=== PATIENT | male | born 1995 | race African-American/Black ===

== ENCOUNTER 2019-05-10 10:55 | Emergency (ER) | payer OTHER ==
--- NOTE | 2019-05-10 13:17 | ER Document Report ---
ED General - General Chief Complaint: Rectal Pain Stated Complaint: RECTAL PAIN Time Seen by Provider: 05/10/19 12:55 Mode of Arrival: Ambulatory Information source: Patient Notes: Patient is a 23-year-old male presenting to the emergency department chief complaint of rectal pain. Patient states that he started lifting weights again after a some time off. Patient states he probably started lifting too heavy. Patient states that this occurred on Thursday and by Thursday night he started having pain when moving his bowels. Patient states he identified a hemorrhoid. Patient denies any other complaints at this time. TRAVEL OUTSIDE OF THE [place] IN LAST 30 DAYS: No - HPI Onset: Last week Onset/Duration: Sudden Quality of pain: Burning, Pressure Severity: Moderate Pain Level: 2 Associated symptoms: None Exacerbated by: Movement Relieved by: Denies Similar symptoms previously: No Recently seen / treated by doctor: No - Related Data Allergies/Adverse Reactions: amoxicillin Allergy (Verified 05/10/19 12:49) Penicillins Allergy (Verified 05/10/19 12:49) Past Medical History - General Information source: Patient - Social History Smoking Status: Current Every Day Smoker Cigarette use (# per day): Yes Smoking Education Provided: Yes Frequency of alcohol use: Occasional Drug Abuse: None Family History: Reviewed & Not Pertinent Patient has suicidal ideation: No Patient has homicidal ideation: No Pulmonary Medical History: Reports: Hx Asthma Past Surgical History: Reports: Hx Orthopedic Surgery - left knee, Hx Tonsill ectomy Review of Systems - Review of Systems Notes: REVIEW OF SYSTEMS: CONSTITUTIONAL : Denies fever, chills, or sweats. Denies recent illness. EENT: Denies eye, ear, throat, or mouth pain or symptoms. Denies nasal or sinus congestion. CARDIOVASCULAR: Denies chest pain. RESPIRATORY: Denies cough, cold, or chest congestion. Denies shortness of breath, difficulty breathing, or wheezing. GASTROINTESTINAL: Per HPI GENITOURINARY: Denies difficulty urinating, painful urination, burning, frequency, or blood in urine. MUSCULOSKELETAL: Denies neck or back pain or joint pain or swelling. SKIN: Denies rash or skin lesions. HEMATOLOGIC : Denies easy bruising or bleeding. NEUROLOGICAL: Denies altered mental status or loss of consciousness. Denies headache. Denies weakness or paralysis or loss of use of either side. Denies problems with gait or speech. Denies sensory or motor loss. PSYCHIATRIC: Denies suicidal or homicidal ideations 10 Systems are negative unless otherwise specified above Physical Exam - Vital signs Vitals: Temp Pulse Resp BP Pulse Ox 98.5 F 83 18 141/75 H 99 05/10/19 11:14 05/10/19 11:14 05/10/19 11:14 05/10/19 11:14 05/10/19 11:14 - Notes Notes: PHYSICAL EXAMINATION: GENERAL: Well-appearing, well-nourished and in no acute distress. HEAD: Atraumatic, normocephalic. EYES: Pupils equal round and reactive to light, extraocular movements intact, sclera anicteric, conjunctiva are normal. ENT: nares patent, oropharynx clear without exudates. Moist mucous membranes. NECK: Normal range of motion, no appreciable JVD LUNGS: No wheezes rales or rhonchi. ABDOMEN: Soft, nontender, normal bowel sounds. No guarding, no rebound. No masses appreciated. Patient does have a rectal hemorrhoid without thrombosis EXTREMITIES: Active full range of motion, no pitting or edema. No cyanosis. 2+ pulses x4 NEUROLOGICAL: No focal neurological deficits. Moves all extremities spontaneously and on command. SKIN: Warm, Dry, and intact. Normal turgor, no rashes or lesions noted. Course - Re-evaluation Re-evalutation: 05/10/19 13:22 Discussed with the patient the need to follow-up for worsening symptoms. Patient will be prescribed Anusol. - Vital Signs Vital signs: Temp Pulse Resp BP Pulse Ox 98.5 F 83 18 141/75 H 99 05/10/19 11:14 05/10/19 11:14 05/10/19 11:14 05/10/19 11:14 05/10/19 11:14 Discharge - Discharge Clinical Impression: Hemorrhoid Qualifiers: Hemorrhoid type: unspecified Qualified Code(s): K64.9 - Unspecified hemorrhoids Condition: Stable Disposition: HOME, SELF-CARE Prescriptions: Phenylephrine HCl [Anusol Suppository] 1 each ND BID PRN #10 supp.rect PRN Reason:
[2019-05-10 14:04] VITALS: BP 140/74
== END 2019-05-10 13:54 | disposition home or self-care (01) ==
LOC: ER 10:55
DX: K64.9 Unspecified hemorrhoids (principal); K62.89 Other specified diseases of anus and rectum; F17.210 Nicotine dependence, cigarettes, uncomplicated
CPT/HCPCS: 99282